=== PATIENT | female | born 1965 | race Hispanic/Latino ===

== ENCOUNTER 2017-01-12 21:57 | Emergency (ER) | payer OTHER ==
[2017-01-12 22:32] VITALS: TEMP 98.3; BMI 32.3
[2017-01-12] MEDS ORDERED: Morphine 2 mg/ml ISec IM STA (22:40)
[2017-01-12] MEDS ORDERED: Lidocaine 5% Patch TD STA (22:48)
--- NOTE | 2017-01-12 22:48 | ED PDOC ---
Arrival/HPI - General Chief Complaint: Back Pain Time Seen by Provider: 01/12/17 22:36 Historian: Patient - History of Present Illness Narrative History of Present Illness (Text): 01/12/17 22:48 51 year old female, pmh includin sciatica, allergic to tylenol and nsaid, complaining of rt. gluteal pain radiating to the rt. lower extremity x 3 days after 6 hours of long plane trip to the [facility]. Aching pain, aggravated by movement and walking, no pain medication taken at home, no night sweat, no dizziness, no palpitation, no rash, no urinary symptoms, no other medical or psychological complaints. Past Medical History - Provider Review Nursing Documentation Reviewed: Yes - Cardiac Hx Cardiac Disorders: No - Pulmonary Hx Respiratory Disorders: No - Neurological Hx Neurological Disorder: Yes Hx Migraine: Yes - HEENT Hx HEENT Disorder: No - Renal Hx Renal Disorder: No - Endocrine/Metabolic Hx Endocrine Disorders: No - Hematological/Oncological Hx Blood Disorders: No - Musculoskeletal/Rheumatological Hx Musculoskeletal Disorders: Yes Hx Back Pain: Yes Hx Herniated Disk: Yes - Gastrointestinal Hx Gastrointestinal Disorders: Yes Hx Irritable Bowel: Yes - Genitourinary/Gynecological Hx Genitourinary Disorders: No - Psychiatric Hx Psychophysiologic Disorder: No Hx Substance Use: Yes (marijuana) Family/Social History - Physician Review Nursing Documentation Reviewed: Yes Family/Social History: Unknown Family HX Smoking Status: Never Smoked Hx Alcohol Use: No Hx Substance Use: Yes (marijuana) Allergies/Home Meds Allergies/Adverse Reactions: Allergies acetaminophen Allergy (Verified 01/12/17 22:30) ANAPHYLAXIS amoxicillin Allergy (Verified 01/12/17 22:30) ANAPHYLAXIS ibuprofen Allergy (Verified 01/12/17 22:30) ANAPHYLAXIS levofloxacin [From Levaquin] Allergy (Verified 01/12/17 22:30) SWELLING sumatriptan [From Imitrex] Allergy (Verified 01/12/17 22:30) ANAPHYLAXIS Home Medications: Home Meds Medication Instructions Recorded Confirmed Loratadine [Claritin] 10 mg PO DAILY 01/12/17 01/12/17 Polyethylene Glycol 3350 [Miralax] 17 gm PO DAILY 01/12/17 01/12/17 Rizatriptan Benzoate [Maxalt] 10 mg PO PRN PRN 01/12/17 01/12/17 Review of Systems - Review of Systems Constitutional: absent: Fatigue, Fevers Eyes: absent: Vision Changes ENT: absent: Hearing Changes Respiratory: absent: Cough Cardiovascular: absent: Chest Pain Gastrointestinal: absent: Abdominal Pain, Nausea, Vomiting Musculoskeletal: Arthralgias, Myalgias. absent: Back Pain, Neck Pain, Joint Swelling Skin: absent: Rash, Pruritis, Skin Lesions Neurological: absent: Headache, Dizziness Physical Exam Vital Signs Reviewed: Yes Vital Signs Temp Pulse Resp BP Pulse Ox 01/12/17 22:31 98.3 F 66 16 125/80 97 Temperature: Afebrile Blood Pressure: Normal Pulse: Regular Respiratory Rate: Normal Appearance: Positive for: Well-Appearing, Non-Toxic, Uncomfortable Pain Distress: Severe Mental Status: Positive for: Alert and Oriented X 3 - Systems Exam Head: Present: Atraumatic, Normocephalic Pupils: Present: PERRL Extroacular Muscles: Present: EOMI Conjunctiva: Present: Normal Mouth: Present: Moist Mucous Membranes Neck: Present: Normal Range of Motion Respiratory/Chest: Present: Clear to Auscultation, Good Air Exchange. No: Respiratory Distress, Accessory Muscle Use Cardiovascular: Present: Regular Rate and Rhythm, Normal S1, S2. No: Murmurs Abdomen: Present: Normal Bowel Sounds. No: Tenderness, Distention, Peritoneal Signs Back: Present: Normal Inspection. No: CVA Tenderness, Midline Tenderness, Paraspinal Tenderness, Pain with Leg Raise, Decubitus Ulcer Upper Extremity: Present: Normal Inspection. No: Cyanosis, Edema Lower Extremity: Present: Normal Inspection, Other (RLE: +ttp no the rt. gluteal muscle region, negative truong and harris signs, FROM without limitation, sensation intact, motor 5/5, +DPPT pulses, capillary refill< 2 seconds, neurovascular intact. ). No: Edema Neurological: Present: GCS=15, Speech Normal, Motor Func Grossly Intact, Gait Normal, Memory Normal Skin: Present: Warm, Dry, Normal Color. No: Rashes Psychiatric: Present: Alert, Oriented x 3, Normal Insight, Normal Concentration Medical Decision Making ED Course and Treatment: 01/12/17 22:50 -RLE venuous doppler -Urinalysis -Morphine 2mg IM and Lidoderm -Observe and reassess 01/13/17 00:01 -Urinalysis show no UTI -RLE venuous doppler: as per preliminary report, no acute DVT -Pain relief with the medication given in the ER, request more pain medication prior to discharge home which I order valium 5mg po, stable for outpatient follow up. -Discharge home with lidoderm patch, cane, heat compression, avoid excessive sitting, follow up with your own pmd and pain management within 2 days, return to the ER for any new or worsening signs or symptoms. - Lab Interpretations Lab Results: Lab Results 01/12/17 22:51: Urine Color Yellow, Urine Appearance Clear, Urine pH 7.0, Ur Specific Weed 1.015, Urine Protein Negative, Urine Glucose (UA) Negative, Urine Ketones Negative, Urine Blood Negative, Urine Nitrate Negative, Urine Bilirubin Negative, Urine Urobilinogen 0.2, Ur Leukocyte Esterase Negative I have reviewed the lab results: Yes Interpretation: No clinic. 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 Disposition/Present on Arrival - Present on Arrival Any Indicators Present on Arrival: No History of DVT/PE: No History of Uncontrolled Diabetes: No Urinary Catheter: No History of Decub. Ulcer: No History Surgical Site Infection Following: None - Disposition Have Diagnosis and Disposition been Completed?: Yes Diagnosis: Sciatica of right side Disposition: HOME/ ROUTINE Disposition Time: 00:03 Patient Plan: Discharge Patient Problems: Current Active Problems Problem Status Onset Sciatica of right side Acute Condition: IMPROVED Additional Instructions: Discharge home with lidoderm patch, flexeril, cane, heat compression, avoid excessive sitting, follow up with your own pmd and pain management within 2 days , return to the ER for any new or worsening signs or symptoms. Prescriptions: Cyclobenzaprine [Cyclobenzaprine HCl] 10 mg PO TID PRN #21 tab PRN Reason: Other Lidocaine 5% [Lidoderm] 1 patch TOP DAILY PRN #14 patch PRN Reason: Other Referrals: Katina Isidro, [Primary Care Provider] - Follow up with primary [facility] [Outside] - Follow up with primary Forms: [employer] (Greenlandic), WORK NOTE
[2017-01-12 23:04] LABS: URINE BILIRUBIN NEGATIVE (NEGATIVE); URINE BLOOD NEGATIVE (NEGATIVE); URINE GLUCOSE (UA) NEGATIVE (NEGATIVE); URINE KETONE NEGATIVE (NEGATIVE); URINE LEUKOCYTE ESTERASE NEGATIVE Leu/uL (NEGATIVE); URINE PROTEIN NEGATIVE mg/dL (<30 mg/dL); URINE UROBILINOGEN 0.2 E.U./dL (<1 E.U./dL)
[2017-01-12 23:05] LABS: URINE APPEARANCE CLEAR (CLEAR); URINE COLOR YELLOW (YELLOW)
[2017-01-13 00:19] VITALS: BP 144/77; PULSE 60; RESP 18; O2SAT 99
--- NOTE | 2017-01-13 08:38 | US ---
PROCEDURE: Right lower extremity venous duplex Doppler. HISTORY: RLE pain COMPARISON: None available. TECHNIQUE: Common femoral, superficial femoral, popliteal and posterior tibial veins were evaluated. Flow was assessed with color Doppler, compressibility, assessment of phasic flow and augmentation response. FINDINGS: COMMON FEMORAL VEIN: Unremarkable. SUPERFICIAL FEMORAL VEIN: Unremarkable. POPLITEAL VEIN: Unremarkable. POSTERIOR TIBIAL VEIN: Unremarkable. OTHER FINDINGS: None. IMPRESSION: No evidence of deep venous thrombosis in the right lower extremity.
[2017-01-13] MEDS ORDERED: Lidocaine 5% Patch TD SCH (10:00)
== END 2017-01-13 00:29 | disposition home or self-care (01) ==
LOC: ED 21:57
DX: M54.31 Sciatica, right side (principal)
CPT/HCPCS: 81003; 93971; 96372; 99283; J2270

== ENCOUNTER 2017-04-23 15:02 | Emergency (ER) | payer OTHER ==
[2017-04-23 15:02] VITALS: BMI 32.3
[2017-04-23] MEDS ORDERED: Sodium Chloride 0.9% 1,000 ML IV STA (16:11)
[2017-04-23] MEDS ORDERED: DiphenhydrAMINE 50 mg/ml Inj IVP STA (16:15)
--- NOTE | 2017-04-23 17:37 | ED PDOC ---
Arrival/HPI - General Chief Complaint: Headache Time Seen by Provider: 04/23/17 16:09 Historian: Patient - History of Present Illness Narrative History of Present Illness (Text): 04/23/17 17:33 A 51 year old female, whose past medical history includes migraine headaches, presents to the emergency department complaining of an intermittent frontal right sided headache for the past 2 weeks. Patient states this is not the worst headache of her life. She reports it was slow in onset and states it feels identical to previous migraine headaches. Patient denies any dizziness, visual changes, fever, chills, nausea, vomiting, chest pain, shortness of breath or any other complaints. Patient reports she was recently diagnosed with sinus disease and took antibiotics outpatient. Time/Duration: Other (2 weeks) Symptom Course: Unchanged, Intermittent Quality: Other Context: Home Past Medical History - Provider Review Nursing Documentation Reviewed: Yes - Infectious Disease Hx of Infectious Diseases: None - Cardiac Hx Cardiac Disorders: Yes - Pulmonary Hx Respiratory Disorders: No - Neurological Hx Neurological Disorder: Yes Hx Migraine: Yes - HEENT Hx HEENT Disorder: No - Renal Hx Renal Disorder: No - Endocrine/Metabolic Hx Endocrine Disorders: No - Hematological/Oncological Hx Blood Disorders: No - Musculoskeletal/Rheumatological Hx Musculoskeletal Disorders: Yes Hx Back Pain: Yes Hx Herniated Disk: Yes - Gastrointestinal Hx Gastrointestinal Disorders: Yes Hx Irritable Bowel: Yes - Genitourinary/Gynecological Hx Genitourinary Disorders: No - Psychiatric Hx Psychophysiologic Disorder: No Hx Substance Use: Yes (marijuana) - Anesthesia Hx Anesthesia: No Family/Social History - Physician Review Nursing Documentation Reviewed: Yes Family/Social History: No Known Family HX Smoking Status: Never Smoked Hx Alcohol Use: No Hx Substance Use: Yes (marijuana) Allergies/Home Meds Allergies/Adverse Reactions: Allergies acetaminophen Allergy (Verified 04/23/17 15:46) ANAPHYLAXIS amoxicillin Allergy (Verified 04/23/17 15:46) ANAPHYLAXIS clavulanic acid [From Augmentin] Allergy (Verified 04/23/17 15:46) ANAPHYLAXIS ibuprofen Allergy (Verified 04/23/17 15:46) ANAPHYLAXIS levofloxacin [From Levaquin] Allergy (Verified 04/23/17 15:46) SWELLING sumatriptan [From Imitrex] Allergy (Verified 04/23/17 15:46) ANAPHYLAXIS Home Medications: Home Meds Medication Instructions Recorded Confirmed Loratadine [Claritin] 10 mg PO DAILY 01/12/17 04/23/17 Rizatriptan Benzoate [Maxalt] 10 mg PO PRN PRN 01/12/17 04/23/17 Physical Exam - Physical Exam Narrative Physical Exam (Text): - Review of Systems Constitutional: Normal. absent: Fatigue, Weight Change, Fevers Eyes: Normal ENT: Normal Respiratory: Normal absent: SOB, Cough, Sputum Cardiovascular: Normal absent: Chest pain, Palpitations, Syncope Gastrointestinal: Normal absent: Abdominal pain, Diarrhea, Nausea, Vomiting Genitourinary: Normal. absent: Dysuria, Frequency, Hematuria Musculoskeletal: Normal. absent: Arthralgias, Back Pain, Neck Pain Skin: Normal Neurological: (+) Frontal right sided headache absent: Focal Weakness, Dizziness Endocrine: Normal Hemo/Lymphatic: Normal Psychiatric: Normal - Physical exam Patient appears age appropriate, speaking full sentences without difficulty - Systems Exam Head: Present: Atraumatic, Normocephalic Pupils: Present: PERRL Extraocular Muscles: Present: EOMI Conjunctiva: Present: Normal Ears: Present: Normal, NORMAL TM, Normal Canal. No: Erythema, TM Bulging, Fluid , TM Perf Mouth: Present: Moist Mucous Membranes Pharnyx: Present: Normal. No: ERYTHEMA, EXUDATE, TONSILS ENLARGED, Peritonsilar Swelling, Uvular Deviation, Muffled/Hoarse Voice, Strider, Soft Palate/Uvular Edema Neck: Present: Normal Range of Motion. No: MIDLINE TENDERNESS, Paraspinal Tenderness Respiratory/Chest: Present: Clear to Auscultation, Good Air Exchange. No: Respiratory Distress, Accessory Muscle Use, Tachypnic Cardiovascular: Present: Regular Rate and Rhythm, Normal S1, S2, Peripheral Pulses Present. No: Murmurs Abdomen: Present: Normal Bowel Sounds, No: Tenderness, Peritoneal Signs, Rebound, Guarding, Distention Back: Present: Normal Inspection. No: Midline Tenderness, Paraspinal Tenderness Upper Extremity: Present: Normal Inspection. No: Cyanosis, Edema Lower Extremity: Present: Normal Inspection. No: Edema Neurological: Present: GCS=15, Speech Normal, cranial nerves II through XII fully intact with no cerebellar abnormality, neuro-sensory fully intact. No focal neurological deficits. Skin: Present: Warm, Dry, Normal Color. No: Rashes Lymphatic: Present: OX3, NI, NC Psychiatric: Present: Alert, Oriented x 3, Normal Insight, Normal Concentration Vital Signs Reviewed: Yes Vital Signs Temp Pulse Resp BP Pulse Ox 04/23/17 15:50 98.8 F 67 19 149/87 100 Temperature: Afebrile Blood Pressure: Normal Pulse: Regular Respiratory Rate: Normal Appearance: Positive for: Well-Appearing, Non-Toxic, Comfortable Pain Distress: None Mental Status: Positive for: Alert and Oriented X 3 Medical Decision Making ED Course and Treatment: 04/23/17 17:33 Impression: A 51 year old female with a frontal right sided headache, identical to previous migraines. Differential Diagnosis included but are not limited to: Tension headache vs. Migraine Plan: -- Head CT -- Benadryl, Reglan and IV fluids -- Reassess and disposition Progress Notes: 04/23/17 19:19 Senior Project Leader/Team Lead : Noam Whitman MD PROCEDURE: CT HEAD WITHOUT CONTRAST. IMPRESSION: Normal CT of the Head. on reeval pt states her pain has almost fully resolved no focal neurological deficits on reexamination states she feels comfortable being dc'd home with outpatient f/u pt has med allergies to tylenol and nsaids. instructed to f/u with her PMD for further w/u and management pt also noted some sinus pressure again confirms she already took abx I recommended otc decongestant as long as she is not allergic Pt states she understands to return to the ER right away for new or worsening symptoms or for inability to f/u with PMD or specialist as instructed. Patient states that she fully agrees with and understands discharge instructions. States that she agrees with the plan and disposition. Verbalized and repeated discharge instructions and plan. I have given the patient opportunity to ask any additional questions. - RAD Interpretation Radiology Orders: 04/23/17 16:15 HEAD W/O CONTRAST [CT] Stat - Medication Orders Current Medication Orders: Discontinued Medications Diphenhydramine HCl (Benadryl) 50 mg IVP STAT STA Stop: 04/23/17 16:16 Last Admin: 04/23/17 17:30 Dose: 50 mg Sodium Chloride (Sodium Chloride 0.9%) 1,000 mls @ 1,000 mls/hr IV .Q1H STA Stop: 04/23/17 17:10 Last Admin: 04/23/17 17:30 Dose: 1,000 mls/hr Metoclopramide HCl (Reglan) 10 mg IVP STAT STA Stop: 04/23/17 16:16 Last Admin: 04/23/17 17:30 Dose: 10 mg - Scribe Statement The provider has reviewed the documentation as recorded by the Oscar Mojica Provider Estrellitaibe Attestation: All medical record entries made by the Scribe were at my direction and personally dictated by me. I have reviewed the chart and agree that the record accurately reflects my personal performance of the history, physical exam, medical decision making, and the department course for this patient. I have also personally directed, reviewed, and agree with the discharge instructions and disposition. Disposition/Present on Arrival - Present on Arrival Any Indicators Present on Arrival: No History of DVT/PE: No History of Uncontrolled Diabetes: No Urinary Catheter: No History of Decub. Ulcer: No History Surgical Site Infection Following: None - Disposition Have Diagnosis and Disposition been Completed?: Yes Diagnosis: Headache Disposition: HOME/ ROUTINE Disposition Time: 19:22 Patient Plan: Discharge Condition: GOOD Discharge Instructions (ExitCare): General Headache (ED) Additional Instructions: PLEASE RETURN TO THE EMERGENCY DEPARTMENT FOR NEW OR WORSENING SYMPTOMS. RETURN RIGHT AWAY IF YOU CANNOT FOLLOW UP WITH YOUR PRIMARY CARE DOCTOR, CLINIC, OR SPECIALIST IN 1-2 DAYS. Referrals: Katina Isidro, [Primary Care Provider] - Follow up with primary Forms: [employer] (Polish), WORK NOTE
--- NOTE | 2017-04-23 19:02 | CT ---
PROCEDURE: CT HEAD WITHOUT CONTRAST. HISTORY: HERR x2 weeks COMPARISON: None available. TECHNIQUE: Axial computed tomography images were obtained through the head/brain without intravenous contrast. Radiation dose: Total exam DLP = 677.45 mGy-cm. This CT exam was performed using one or more of the following dose reduction techniques: Automated exposure control, adjustment of the mA and/or kV according to patient size, and/or use of iterative reconstruction technique. FINDINGS: HEMORRHAGE: No intracranial hemorrhage. BRAIN: No mass effect or edema. No atrophy or chronic microvascular ischemic changes. VENTRICLES: Unremarkable. No hydrocephalus. CALVARIUM: Unremarkable. PARANASAL SINUSES: Unremarkable as visualized. No significant inflammatory changes. MASTOID AIR CELLS: Unremarkable as visualized. No inflammatory changes. OTHER FINDINGS: None. IMPRESSION: Normal CT of the Head.
[2017-04-23 19:35] VITALS: BP 141/79; PULSE 70; RESP 18; TEMP 98.5; O2SAT 98
== END 2017-04-23 19:35 | disposition home or self-care (01) ==
LOC: ED 15:02
DX: R51 Headache (principal)
CPT/HCPCS: 70450; 96374; 96375; 99285; J1200; J2765; J7040